=== PATIENT | male | born 1975 | race Hispanic/Latino ===

== ENCOUNTER 2017-03-19 13:50 | Emergency (ER) | payer BC, OTHER ==
[2017-03-19] MEDS ORDERED: TETANUS/DIPHTHERIA TOXOID [ADULT] 0.5 ML VIAL IM ONE (14:35)
== END 2017-03-19 14:45 | disposition home or self-care (01) ==
LOC: EDH 13:50
DX: S61.411A Laceration without foreign body of right hand, initial encounter (principal); Z90.5 Acquired absence of kidney; W25.XXXA Contact with sharp glass, initial encounter; Y93.89 Activity, other specified; Y92.89 Other specified places as the place of occurrence of the external cause; Y99.8 Other external cause status
CPT/HCPCS: 12001; 73130; 90471; 90714

== ENCOUNTER → 2018-08-17 | Outpatient (CLI) | payer BC ==
[2018-08-20 06:12] LABS: RUBEOLA (MEASLES) IGG >300.0 AU/mL (Immune >29.9)
== END | disposition home or self-care (01) ==
LOC: LAB 16:25
PROVIDERS: ATTEND Family Medicine
DX: Z01.84 Encounter for antibody response examination (principal)
CPT/HCPCS: 36415; 87283